=== PATIENT | female | born 1995 | race Caucasian/White ===

== ENCOUNTER 2020-10-12 05:07 | Inpatient (IN) | payer MEDICAID, SELFPAY ==
[2020-10-10 13:53] LABS: BASOPHILS # (AUTO) 0.1 K/uL (0.00-0.22); EOSINOPHILS # (AUTO) 0.1 K/uL (0-0.4); EOSINOPHILS % (AUTO) 1.1 % (0.0-4.0); HEMATOCRIT 40.1 % (36-48); HEMOGLOBIN 13.6 g/dL (12.0-16.0); LYMPHOCYTES # (AUTO) 1.5 K/uL (2.5-16.5); LYMPHOCYTES % (AUTO) 16.4 % (20.5-51.1); MEAN CORPUSCULAR HEMOGLOBIN 30 pg (27-31); MEAN CORPUSCULAR HGB CONC 34 g/dL (33-37); MEAN CORPUSCULAR VOLUME 89.4 fL (80-94); MONOCYTES # (AUTO) 0.5 K/uL (0.8-1.0); MONOCYTES % (AUTO) 5.5 % (1.7-9.3); NEUTROPHILS # (AUTO) 7.1 K/uL (1.8-7.7); PLATELET COUNT (AUTO) 211 K/uL (140-450); RED BLOOD CELL COUNT(AUTO) 4.48 MIL/uL (4.20-5.40); RED CELL DISTRIBUTION WIDTH 14.6 % (11.6-13.7); WHITE BLOOD COUNT (AUTO) 9.3 K/uL (4.8-10.8)
[2020-10-10 13:59] LABS: APPEARANCE,URINE HAZY (CLEAR); BILIRUBIN,URINE 1+ (NEGATIVE); BLOOD, URINE NEGATIVE (NEGATIVE); COLOR,URINE YELLOW (YELLOW); LEUKOCYTE ESTERASE ,URINE TRACE (NEGATIVE); NITRITE, URINE NEGATIVE (NEGATIVE); UGLUCOSE NEGATIVE (NEGATIVE)
[2020-10-10 14:19] LABS: ALBUMIN 2.5 g/dL (3.4-5.0); ANION GAP 13.2 (8-16); CREATININE 0.6 mg/dL (0.6-1.3); POTASSIUM 4.2 mmol/L (3.5-5.1); TOTAL BILIRUBIN 0.5 mg/dL (0.0-1.0)
[2020-10-10 15:57] LABS: RBC,URINE 0-5 /HPF (0-5)
[~2020-10-12] VITALS: Ht 157.5 cm; Wt 98.0 kg
[2020-10-12] MEDS ORDERED: PNV91TAB8 PO (05:15)
[2020-10-12] MEDS ORDERED: LACTATED RINGERS 1,000 ML IV SCH ×2 (05:20→08:20)
[2020-10-12] MEDS ORDERED: CITRIC ACID/SODIUM CITRATE 30 ML UDC PO ONE (05:20)
[2020-10-12] MEDS ORDERED: ceFAZolin 1,000 MG VIAL ONE (05:42)
[2020-10-12 06:08] VITALS: BP 114/59
[2020-10-12] MEDS ORDERED: METHYLERGONOVINE 0.2 MG/ML AMP IM PRN (06:50)
[2020-10-12] MEDS ORDERED: MEASLES, MUMPS, AND RUBELLA 1 VIAL SQVAC PRN (06:50)
[2020-10-12] MEDS ORDERED: MORPHINE PRES FREE 10 MG/10 ML AMP IV ONE (07:21)
--- NOTE | 2020-10-12 08:17 | NUR ---
PATIENT HAS BEEN SCREENED AND CATEGORIZED LOW NUTRITION RISK. PATIENT WILL BE SEEN WITHIN 7 DAYS OF ADMISSION. 10/18/[address]
[2020-10-12] MEDS ORDERED: diphenhydrAMINE 50 MG/ML VIAL IVP PRN ×2 (08:20)
[2020-10-12] MEDS ORDERED: NALBUPHINE 10 MG/ML AMP IVP PRN (08:20)
[2020-10-12] MEDS ORDERED: HYDROmorphone 1 MG/ML AMP IVP PRN (08:20)
[2020-10-12] MEDS ORDERED: ONDANSETRON 4 MG/2 ML VIAL IVP PRN ×2 (08:20)
[2020-10-12] MEDS ORDERED: MEPERIDINE 25 MG/ML SYR IVP PRN (08:20)
[2020-10-12] MEDS ORDERED: NALOXONE 0.4 MG/ML VIAL IVP PRN ×3 (08:20)
[2020-10-12] MEDS ORDERED: OXYTOCIN 20 UNITS in LACTATED RINGERS 1,000 ML IV SCH (08:20)
[2020-10-12] MEDS: bisacodyL 10 MG SUPP RC SCH (09:00)
[2020-10-12] MEDS: KETOROLAC 30 MG/ML VIAL IM/IVP SCH ×2 (12:38→18:13)
[2020-10-12] MEDS: OXYTOCIN 20 UNITS in LACTATED RINGERS 1,000 ML IV SCH ×2 (15:00→23:45)
[2020-10-12] MEDS ORDERED: PROMETHAZINE 25 MG/ML VIAL IVP PRN (18:45)
[2020-10-12] MEDS ORDERED: OXYTOCIN 20 UNITS/LR PREMIX 1,000 ML IV ONE (23:38)
[2020-10-13] MEDS: KETOROLAC 30 MG/ML VIAL IM/IVP SCH (00:02)
[2020-10-13 05:37] LABS: BASOPHILS # (AUTO) 0.1 K/uL (0.00-0.22); BASOPHILS % (AUTO) 0.6 % (0.0-2.0); EOSINOPHILS # (AUTO) 0.1 K/uL (0-0.4); EOSINOPHILS % (AUTO) 0.6 % (0.0-4.0); HEMATOCRIT 28.9 % (36-48); HEMOGLOBIN 9.7 g/dL (12.0-16.0); LYMPHOCYTES # (AUTO) 1.7 K/uL (2.5-16.5); LYMPHOCYTES % (AUTO) 15.8 % (20.5-51.1); MEAN CORPUSCULAR HEMOGLOBIN 30 pg (27-31); MEAN CORPUSCULAR HGB CONC 34 g/dL (33-37); MEAN CORPUSCULAR VOLUME 90.4 fL (80-94); MONOCYTES # (AUTO) 0.8 K/uL (0.8-1.0); MONOCYTES % (AUTO) 7.2 % (1.7-9.3); NEUTROPHILS # (AUTO) 8.2 K/uL (1.8-7.7); NEUTROPHILS % (AUTO) 75.8 % (42.2-75.2); PLATELET COUNT (AUTO) 157 K/uL (140-450); RED CELL DISTRIBUTION WIDTH 14.6 % (11.6-13.7); WHITE BLOOD COUNT (AUTO) 10.9 K/uL (4.8-10.8)
[2020-10-13] MEDS ORDERED: oxyCODONE/APAP 5/325 MG 1 TAB TAB PO PRN (06:15)
[2020-10-13] MEDS: SIMETHICONE 80 MG TAB.CHEW PO PRN ×3 (09:07→18:31)
[2020-10-13] MEDS: oxyCODONE/APAP 5/325 MG 1 TAB TAB PO PRN (10:44)
[2020-10-13] MEDS: IBUPROFEN 600 MG TAB PO SCH ×2 (12:35→18:30)
[2020-10-13] MEDS: bisacodyL 10 MG SUPP RC SCH (16:38)
[2020-10-14] MEDS: IBUPROFEN 600 MG TAB PO SCH ×3 (00:10→12:00)
[2020-10-14] MEDS ORDERED: CAMERA MC ONE (03:24)
[2020-10-14] MEDS: oxyCODONE/APAP 5/325 MG 1 TAB TAB PO PRN ×2 (03:38→12:28)
[2020-10-14] MEDS: bisacodyL 10 MG SUPP RC SCH (09:00)
== END 2020-10-14 13:50 | disposition home or self-care (01) | DRG 540 ==
LOC: MLD 05:07 → MFCC 08:29
PROVIDERS: ADMIT Obstetrics & Gynecology; ATTEND Obstetrics & Gynecology
PROC: 10D00Z1 Extraction of Products of Conception, Low, Open Approach (ICD-10-PCS; principal; 2020-10-12 07:30)
DX: O34.211 Maternal care for low transverse scar from previous cesarean delivery (principal); O24.429 Gestational diabetes mellitus in childbirth, unspecified control; L29.9 Pruritus, unspecified; O89.5 Other complications of spinal and epidural anesthesia during the puerperium; O99.73 Diseases of the skin and subcutaneous tissue complicating the puerperium; Z20.822 Contact with and (suspected) exposure to COVID-19; Z3A.39 39 weeks gestation of pregnancy; Z37.0 Single live birth; Z28.21 Immunization not carried out because of patient refusal
CPT/HCPCS: 36415; 80053; 81001; 85025; 86592; 86886; 86900; 86901; 87081; 87086; 96360; 96361; J0690; J1885; J2270; J2590; J7060; J7120; U0003